=== PATIENT | male | born 1980 | race Caucasian/White ===

== ENCOUNTER 2024-01-01 20:22 | Emergency (ER) | payer BC, SELFPAY ==
[2024-01-01 20:47] VITALS: BP 128/74; PULSE 67; TEMP 36.9; O2SAT 98; BMI 23.7
[2024-01-01] MEDS: ADACEL DIPH,PERTUSS(ACELL),TET VAC/PF 0.5 ML ADULT SYRINGE IM (21:18)
--- NOTE | 2024-01-01 21:32 | ED.EXTPRO1 ---
HPI - Extremity Problem General Chief complaint: Extremity Problem, Nontraumatic Stated complaint: RIGHT LEG SUNBURN Time Seen by Provider: 01/01/24 21:29 Source: patient Mode of arrival: walk-in Limitations: no limitations History of Present Illness HPI Narrative: sun burn bilat lower ext one week ago. continues to have redness of the right leg and it also swelling. No dyspnea or chest pain. No fever but leg is uncomfortable Related Data Home Medications ?Medication ?Instructions ?Recorded ?Confirmed No Known Home Medications 01/01/24 01/01/24 Allergies Allergy/AdvReac Type Severity Reaction Status Date / Time No Known Drug Allergies Allergy Verified 01/01/24 20:53 Review of Systems ROS Status of ROS 10 or more systems reviewed and unremarkable except as noted in history and below Exam Constitutional Vital Signs, click to edit/add: Last Vital Signs Temp 98.4 F 01/01/24 20:47 Pulse 67 01/01/24 20:47 Resp 16 01/01/24 20:47 BP 128/74 01/01/24 20:47 Pulse Ox 98 01/01/24 20:47 O2 Del Method Room Air 01/01/24 20:47 Common normals: no apparent distress, average body habitus, oriented x3 and no limitations HENMT Common normals: normocephalic and head/scalp atraumatic Eye Common normals: EOMs intact bilaterally and conjunctivae normal Respiratory Common normals: normal respiratory effort, no retractions, no use of accessory muscles and clear to auscultation bilaterally Cardio Common normals: regular rate, regular rhythm, S1 normal heart sound and S2 normal heart sound GI Common normals: Normal to inspection, nondistended, normoactive bowel sounds present, soft to palpation and non-tender Extremity Other: erythema of the right leg up to the knee. swelling about the ankle. mild tenderness left leg with erythema that is dry peeling and resolving . no swelling Neuro Common normals: oriented x3, CN's II-XII intact bilaterally and moves all extremities Psych Appearance: grossly normal Course Vital Signs Vital signs: Vital Signs Temperature 98.4 F 01/01/24 20:47 Pulse Rate 67 01/01/24 20:47 Respiratory Rate 16 01/01/24 20:47 Blood Pressure 128/74 01/01/24 20:47 Pulse Oximetry 98 01/01/24 20:47 Oxygen Delivery Method Room Air 01/01/24 20:47 Temperature 98.4 F 01/01/24 20:47 Pulse Rate 67 01/01/24 20:47 Respiratory Rate 16 01/01/24 20:47 Blood Pressure 128/74 01/01/24 20:47 Pulse Oximetry 98 01/01/24 20:47 Oxygen Delivery Method Room Air 01/01/24 20:47 MDM - Extremity (Nontraumatic) MDM Narrative Medical decision making narrative: patient presents with sunburn RLE suspicious for cellulitis. burn to both legs 1 wk ago. left leg is clearing up. right leg still erythematous and has swelling also. mild tenderness. D-dimer neg. Patient medicated with solumedrol and rocephin. Discharged on prednisone and keflex and advised to follow up with his doctor for recheck Lab Data Labs: Lab Results 01/01/24 Range/Units 21:43 WBC 7.0 (4.0-11.0) 10^3/uL RBC 5.17 (4.70-6.10) 10^6/uL Hgb 15.5 (14.0-18.0) g/dL Hct 44.6 (42.0-54.0) % MCV 86.3 (80.0-94.0) fL MCH 30.0 (25.9-34.0) pg MCHC 34.8 (29.9-35.2) g/dL RDW 12.7 (11.0-15.0) % Plt Count 262 (150-450) 10^3/uL MPV 10.2 (9.5-13.5) fL Neut % (Auto) 61.2 (43.0-75.0) % Lymph % (Auto) 28.0 (20.5-60.0) % [place] % (Auto) 8.2 (1.7-12.0) % Eos % (Auto) 1.7 (0.9-7.0) % Baso % (Auto) 0.6 (0.2-2.0) % Neut # (Auto) 4.3 (1.4-6.5) 10^3/uL Lymph # (Auto) 2.0 (1.2-3.8) 10^3/uL [place] # (Auto) 0.6 (0.3-0.8) 10^3/uL Eos # (Auto) 0.1 (0.0-0.7) 10^3/uL Baso # (Auto) 0.0 (0.0-0.1) 10^3/uL Abs Immat Gran (auto) 0.02 (0.00-0.03) 10^3/uL Imm/Tot Granulo (auto) 0.3 (0.0-0.5) % D-Dimer 0.28 (<=0.59) mg/L FEU Sodium 139 (136-145) mmol/L Potassium 3.6 (3.5-5.1) mmol/L Chloride 104 (98-107) mmol/L Carbon Dioxide 28.2 (21.0-32.0) mmol/L Anion Gap 10.4 BUN 8.0 (7.0-18.0) mg/dL Creatinine 0.93 (0.70-1.30) mg/dL Est GFR ( Amer) >60 (>=60) Est GFR (Non-Af Amer) >60 (>=60) BUN/Creatinine Ratio 8.6 Glucose 88 (74-106) mg/dL Calcium 8.6 (8.5-10.1) mg/dL Discharge Plan Discharge Stand Alone Forms: Portal Instructions Chief Complaint: Extremity Problem, Nontraumatic Clinical Impression: Cellulitis, 1st degree sunburn Patient Disposition: Home, Self-Care Prescriptions / Home Meds: No Action No Known Home Medications Print Language: Chinese Instructions: Cellulitis (ED), Sunburn (ED) Additional Instructions: follow up with your doctor for recheck in 2-3 days Referrals: RAJAN GREENE [Primary Care Provider] - 1 week
[2024-01-01 21:52] LABS: Basophils Percent Auto 0.6 % (0.2-2.0); Eosinophils Absolute Auto 0.1 10^3/uL (0.0-0.7); Eosinophils Percent Auto 1.7 % (0.9-7.0); Hematocrit 44.6 % (42.0-54.0); Hemoglobin 15.5 g/dL (14.0-18.0); Immature Granulocytes Abs Auto 0.02 10^3/uL (0.00-0.03); Immature Granulocytes Pct Auto 0.3 % (0.0-0.5); Mean Corpuscular HGB Conc 34.8 g/dL (29.9-35.2); Mean Corpuscular Volume 86.3 fL (80.0-94.0); Mean Platelet Volume 10.2 fL (9.5-13.5); Monocytes Absolute Auto 0.6 10^3/uL (0.3-0.8); Monocytes Percent Auto 8.2 % (1.7-12.0); Neutrophils Absolute Auto 4.3 10^3/uL (1.4-6.5); Neutrophils Percent Auto 61.2 % (43.0-75.0); Platelet Count 262 10^3/uL (150-450); Red Blood Count 5.17 10^6/uL (4.70-6.10); Red Cell Distribution Width 12.7 % (11.0-15.0)
[2024-01-01 22:00] LABS: Anion Gap 10.4; BUN Creatinine Ratio 8.6; Calcium 8.6 mg/dL (8.5-10.1); Carbon Dioxide 28.2 mmol/L (21.0-32.0); Chloride 104 mmol/L (98-107); Estimated GFR (African America >60 (>=60); Estimated GFR (Non-African Ame >60 (>=60); Glucose 88 mg/dL (74-106); Potassium 3.6 mmol/L (3.5-5.1); Sodium 139 mmol/L (136-145)
[2024-01-01] MEDS: CEFTRIAXONE 1,000 MG in 0.9 % SODIUM CHLORIDE 50 ML 100 MG IV (22:00)
[2024-01-01] MEDS: METHYLPREDNISOLONE SOD SUCC PF 125 MG/2 ML VIAL IVP (22:00)
[2024-01-01 22:04] LABS: D Dimer 0.28 mg/L FEU (<=0.59)
[2024-01-01] MEDS: SILVER SULFADIAZINE 1% CREAM 25 GM TUBE 1 APPLIC TOPICAL (22:35)
[2024-01-01 22:40] VITALS: BP 116/76; PULSE 59; O2SAT 99
--- NOTE | 2024-01-01 23:02 | PC.NURSE ---
Bilateral shins red nicole with peeling skin from sunburn. Right leg swells when up
== END 2024-01-01 22:42 | disposition home or self-care (01) ==
PROVIDERS: Emergency Provider Internal Medicine; PCP Family Medicine
DX: L03.115 Cellulitis of right lower limb (principal); L55.0 Sunburn of first degree; Z23 Encounter for immunization
CPT/HCPCS: 36415; 80048; 85025; 85378; 90471; 90715; 96365; 96375; 99284; J0696; J2919